=== PATIENT | male | born 2000 | race Caucasian/White ===

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

== ENCOUNTER → 2021-01-07 13:41 | Outpatient (CLI) | payer SELFPAY | PROVIDERS: PCP Pediatrics; Visit Provider Nurse Practitioner | DX: Z20.822 Contact with and (suspected) exposure to COVID-19 (principal); U07.1 COVID-19 | CPT/HCPCS: C9803; U0003; U0005 ==

== ENCOUNTER 2022-05-25 23:21 | Emergency (ER) | payer SELFPAY ==
[2022-05-25 23:22] VITALS: BP 135/89; PULSE 89; RESP 17; TEMP 36.8; O2SAT 100; BMI 20.7
[2022-05-25 23:31] VITALS: BP 135/89; PULSE 84; O2SAT 100
[2022-05-25 23:38] LABS: Microscopic, Urine URINE MICROSCOPIC (MICROSCOPIC)
[2022-05-25 23:44] LABS: Basophils # 0.2 K/mm3 (0-0.2); Basophils % 1.9 % (0.1-2.0); Eosinophils # 0.1 K/mm3 (0.0-0.4); Eosinophils % 1.2 % (0.1-12.0); Hemoglobin 17.3 g/dL (14.1-18.0); Lymphocytes # 2.9 K/mm3 (0.7-4.5); Lymphocytes % 25.8 % (10-50); Mean Corpuscular Hemoglobin 31.8 pg (27.0-31.2); Mean Corpuscular Volume 93.5 fl (80-94); Mean Platelet Volume 8.5 fl (7.4-10.4); Monocytes # 0.6 K/mm3 (0.1-1.0); Monocytes % 5.4 % (1.7-9.3); Neutrophils # 7.5 K/mm3 (1.8-7.8); Neutrophils % 65.6 % (37.0-80.0); Platelet Count 357 K/mm3 (142-424); Red Blood Count 5.46 M/mm3 (4.60-6.20); Red Cell Distribution Width 13.7 % (11.5-17.5); White Blood Count 11.4 K/mm3 (4.8-10.8)
[2022-05-25 23:45] LABS: Chloride 103 mmol/L (98-107); Sodium 142 mmol/L (136-145)
[2022-05-25 23:47] LABS: Amylase 91 U/L (30-110); Blood Urea Nitrogen 12 mg/dl (9-20); Creatinine Clearance Estimated 117 mL/min (50-200); Estimated Glomerular Filt Rate 107 ml/min (>60); GFR (African American) 129 ML/MIN (>60)
[2022-05-25 23:48] LABS: Alanine Aminotransferase 51 U/L (12-78); Albumin Level 5.5 g/dl (3.5-5.0); Albumin/Globulin Ratio 1.5 (1.1-1.8); Alkaline Phosphatase 67 U/L (38-126); Aspartate Amino Transferase 48 U/L (17-59); Calcium 9.7 mg/dl (8.4-10.2); Carbon Dioxide 27 mmol/L (22.0-30.0); Globulin 3.7 g/dL (1.3-3.2); Glucose 95 mg/dl (74-100); Lipase 52 U/L (23-300); Total Protein,Serum 9.2 g/dl (6.3-8.2)
[2022-05-25 23:50] LABS: Lactic Acid 1.2 mmol/L (0.7-2.1)
[2022-05-25 23:57] LABS: Appearance,Urine CLEAR (Clear); Bilirubin,Urine Negative (Negative); Blood, Urine Negative (Negative); Color,Urine YELLOW (Yellow); Glucose,Urine (UA) Negative (Negative); Ketones,Urine Negative (Negative); Leukocyte Esterase,Urine Negative (Negative); Nitrate,Urine Negative (Negative); PH,Urine 6.5 (5.0-8.5); Protein,Urine Negative (Negative); Urobilinogen,Urine 0.2 EU/dl (0.2)
[2022-05-25 23:58] LABS: Bacteria,Urine Trace /lpf
[2022-05-26] VITALS: BP 128/78; PULSE 69; O2SAT 100
--- NOTE | 2022-05-26 | CT_ITS ---
PROCEDURE INFORMATION: Exam: CT Abdomen And Pelvis With Contrast Exam date and time: 05/26/2022 12:09 AM Age: 22 years old Clinical indication: Abdominal pain; Additional info: Abd pain TECHNIQUE: Imaging protocol: Computed tomography of the abdomen and pelvis with contrast. Radiation optimization: All CT scans at this facility use at least one of these dose optimization techniques: automated exposure control; mA and/or kV adjustment per patient size (includes targeted exams where dose is matched to clinical indication); or iterative reconstruction. Contrast material: ISOVUE; Contrast volume: 75 ml; Contrast route: IV; Other protocol: This patient has received 0 known CTs and 0 known cardiac nuclear medicine studies in the 12 months prior to the current study. COMPARISON: CT ABDOMEN PELVIS W CON 05/27/2020 3:37 AM FINDINGS: Liver: Normal. No mass. Gallbladder and bile ducts: Normal. No calcified stones. No ductal dilation. Pancreas: Normal. No ductal dilation. Spleen: Mild splenomegaly with 13 cm spleen unchanged. Adrenal glands: Normal. No mass. Kidneys and ureters: Normal. No hydronephrosis. Stomach and bowel: Mild distal small bowel fluid is seen with scattered air-fluid levels suggesting possible enteritis. No bowel obstruction. The colon also scattered wall thickening. Appendix: No evidence of appendicitis. Intraperitoneal space: Unremarkable. No free air. No significant fluid collection. Vasculature: Unremarkable. No abdominal aortic aneurysm. Lymph nodes: Unremarkable. No enlarged lymph nodes. Urinary bladder: Unremarkable as visualized. Reproductive: Unremarkable as visualized. Bones/joints: Unremarkable. No acute fracture. Soft tissues: Unremarkable. IMPRESSION: 1. Mild small bowel enteritis and scattered colitis is suspected, which is likely infectious/inflammatory. No bowel obstruction. 2. Stable mild splenomegaly.
--- NOTE | 2022-05-26 00:05 | PC.NURSE ---
pt out of room to CT @ this time.
[2022-05-26 00:30] VITALS: BP 131/79
--- NOTE | 2022-05-26 00:49 | HMH.EDABDPAI ---
Discharge Plan Disposition Patient Disposition: Home, Self-Care Prescriptions Prescriptions: New ondansetron HCl 4 mg Tablet 4 mg PO Q8H PRN (Reason: Nausea) Qty: 20 0RF Referrals Follow up/Referrals: Ben Mera [Primary Care Provider] - See instructions Clinical Impressions Clinical Impression: Enteritis Instructions Patient Instructions: DI for Enteritis Discharge ED Provider: Favian (ED),Chong Gutierrez Abdominal Pain HPI General Chief Complaint: Abdominal Pain Stated Complaint: abdominal pain Time Seen by Provider: 05/26/22 00:49 Mode of Arrival: Ambulatory Source of Information: Patient and Medical Record Limitations: No Limitations Description of Symptoms (Recalled from ER Triage Doc. by RN): 22 M presents with 1 day of generalized abdominal cramping with nausea and diarrhea. He states he thought he slept wrong and that was causing his abdominal pain, but when the diarrhea started he became worried it could be his appendix. Denies fever, chills, vomiting, or dysuria. History of Present Illness HPI narrative: generalized abd pain - crampy with vomiting and episode of nonbldy diarrhea - no known contacts MD complaint: abdominal pain Onset (ago): day(s) Consistency: intermittent Location: diffuse Quality: cramping Associated symptoms: denies other symptoms Related Data Previous Rx's Medication Instructions Recorded ondansetron HCl 4 mg tablet 4 mg PO Q8H PRN Nausea #20 tabs 05/26/22 Allergies Allergy/AdvReac Type Severity Reaction Status Date / Time No Known Allergies Allergy Verified 06/28/17 10:26 [facility] Disclaimer: The information contained in this section may have been updated after the patient was seen, as this information can be updated by other users. Social History Smoking Status: Current every day smoker tobacco type: e-cigarettes alcohol intake: current substance use type: marijuana current occupational status: employed Travel in the last 8 weeks: None ROS Obtained: Yes All systems reviewed & no additional complaints except as documented Physical Exam General General appearance: alert Head Head exam: normocephalic Eye Eye exam: Present PERRL and EOMI; Absent scleral icterus ENT ENT exam: Present mucous membranes moist Neck Neck exam: Present trachea midline Respiratory Respiratory exam: Present normal lung sounds bilaterally; Absent respiratory distress Cardiovascular Cardiovascular exam: Present regular rate Abdominal Exam Abdominal exam: Present soft and tenderness; Absent guarding or rebound Abdominal tenderness: Present diffuse and mild Extremities Exam Extremities exam: Present full ROM Neurological Exam Neurological exam: Present alert, oriented X3 and CN II-XII intact; Absent motor sensory deficit Psychiatric Psychiatric exam: Present normal affect Skin Skin exam: Absent rash Medical Decision Making Medical Records Medical records reviewed: Yes I reviewed the patient's medical records. Sherif Inquiry Pt receiving controlled substance: No Vital Signs: 05/25/22 23:22 05/25/22 23:31 05/26/22 00:00 Temperature 98.3 F Temperature Source Oral Pulse Rate 84 69 Pulse Rate [Left] 89 Respiratory Rate 17 Blood Pressure 135/89 128/78 Blood Pressure [Right Arm] 135/89 Blood Pressure Mean [Right Arm] 104 Blood Pressure Source [Right Arm] Automatic Cuff Blood Pressure Position [Right Arm] Sitting 02 Sat by Pulse Oximetry 100 100 100 Oxygen Delivery Method Room Air Lab Data Lab results reviewed: Yes I reviewed the patient's lab results. Lab Results 05/25/22 23:29: WBC 11.4 H, RBC 5.46, Hgb 17.3, Hct 51.0, MCV 93.5, MCH 31.8 H, MCHC 34.0, RDW 13.7, Plt Count 357, MPV 8.5, Neut % (Auto) 65.6, Lymph % (Auto) 25.8, [place] % (Auto) 5.4, Eos % (Auto) 1.2, Baso % (Auto) 1.9, Neut # (Auto) 7.5, Lymph # (Auto) 2.9, [place] # (Auto) 0.6, Eos # (Auto) 0.1, Baso # (Auto) 0.2 05/25/22 23:29: Sodium 142, Potassium 4.0, Chloride 103,
[2022-05-26 01:00] VITALS: BP 116/70; PULSE 80; O2SAT 100
[2022-05-26 01:16] VITALS: BP 116/70; PULSE 80; RESP 18; TEMP 36.6; O2SAT 99
[2022-05-26 01:42] LABS: C-Reactive Protein < 0.3 mg/L (0-4)
[2022-05-26 01:46] LABS: Procalcitonin < 0.030 ng/mL (0.0-2.0)
[2022-05-26 02:02] LABS: Erythrocyte Sedimentation Rate 4 mm/hr (0-15)
== END 2022-05-26 01:20 | disposition home or self-care (01) ==
PROVIDERS: Emergency Provider Emergency Medicine; PCP Pediatrics
DX: K52.9 Noninfective gastroenteritis and colitis, unspecified (principal); F17.290 Nicotine dependence, other tobacco product, uncomplicated; F12.90 Cannabis use, unspecified, uncomplicated
CPT/HCPCS: 74177; 80053; 81001; 82150; 83605; 83690; 84145; 85025; 85651; 86140; 96360; 96361; 99285; Q9967

== ENCOUNTER 2023-06-29 17:19 | Emergency (ER) | payer BC, SELFPAY ==
[2023-06-29 18:10] VITALS: BP 130/73; PULSE 91; RESP 18; TEMP 37.2; O2SAT 96; BMI 22.9
--- NOTE | 2023-06-29 18:28 | EXP.UTC ---
Discharge Plan Disposition Patient Disposition: Home, Self-Care Condition: Good Prescriptions Prescriptions: New mupirocin 2 % ointment 1 applic topical TID 7 Days Qty: 22 0RF sulfamethoxazole-trimethoprim [Bactrim DS] 800-160 mg Tablet 1 tab PO BID Qty: 20 0RF cephalexin 500 mg capsule 500 mg PO QID Qty: 40 0RF Referrals Follow up/Referrals: Ben Mera [Primary Care Provider] - See instructions Activity Restrictions/Add. Instructions Additional Instructions/Restrictions: Keep the wound clean and dry. Watch the wound for signs of worsening infection, such as worsening redness, swelling, drainage, fever. etc. Take tylenol or ibuprofen for pain. Follow up with your regular doctor. Make sure you follow up withing the next 48 to 72 hours to have the infected wound rechecked. GO TO THE ER FOR ANY WORSENING SYMPTOMS OR CONCERNS. Clinical Impressions Clinical Impression: Unspecified local infection of skin and subcutaneous tissue, Cellulitis of right hand Instructions Patient Instructions: Trimethoprim/Sulfamethoxazole (Alternative Therapy), Cellulitis, Cephalexin, Mupirocin Discharge ED Provider: Shadi Peters [facility] General Stated complaint: right arm pain Time Seen by Provider: 06/29/23 18:28 History of Present Illness Provider Complaint: He states that for the past 2 days he has had a redness around a new tattoo that he got on his right forearm 4 days ago. Related Data Previous Rx's Medication Instructions Recorded cephalexin 500 mg capsule 500 mg PO QID #40 caps 06/29/23 mupirocin 2 % topical ointment 1 applic topical TID 7 days #22 06/29/23 grams sulfamethoxazole 800 1 tab PO BID #20 tabs 06/29/23 mg-trimethoprim 160 mg tablet (Bactrim DS) Allergies Allergy/AdvReac Type Severity Reaction Status Date / Time No Known Allergies Allergy Verified 06/29/23 18:39 [facility] Disclaimer: The information contained in this section may have been updated after the patient was seen, as this information can be updated by other users. Social History Smoking Status: Current every day smoker tobacco type: e-cigarettes alcohol intake: current substance use type: marijuana current occupational status: employed Travel in the last 8 weeks: None ROS Obtained: Yes All systems reviewed & no additional complaints except as documented Constitutional Constitutional: Denies chills and Denies fever(s) Eyes Eyes: Denies eye discharge ENT Ears, Nose, Mouth, and Throat: Denies dizziness, Denies otalgia and Denies sore throat Cardiovascular Cardiovascular: Denies chest pain Respiratory Respiratory: Denies shortness of breath, Denies chest congestion, Denies cough, Denies stridor and Denies wheezing Gastrointestinal Gastrointestingal: Denies nausea or vomiting Musculoskeletal Musculoskeletal: Reports system reviewed and no additional complaints, except as documented and Denies arthralgias Integumentary/Breasts Skin/Breast: Reports as per HPI, Reports redness and Reports rash Neurologic Neurologic: Denies dizziness and Denies paresthesias Allergic/Immunologic Allergic/Immunologic: Denies wheezing Physical Exam General General appearance: alert and in no apparent distress Head Head exam: atraumatic, normocephalic and normal inspection Eye Eye exam: Present normal appearance, PERRL and EOMI ENT ENT exam: Present normal exam, normal oropharynx, mucous membranes moist, TM's normal bilaterally and normal external ear exam Neck Neck exam: Present normal inspection, full ROM and trachea midline; Absent meningismus or lymphadenopathy Chest Chest inspection: Present normal inspection and symmetric chest wall rise; Absent tenderness Respiratory Respiratory exam: Present normal lung sounds bilaterally; Absent respiratory distress Cardiovascular Cardiovascular exam: Present regular rate and normal rhythm; Absent JVD Abdominal Exam Abdominal exam: Present soft and normal bowel sounds; Absent distention, tenderness or guarding Extremities Exam Extremities exam: Present normal inspection, full ROM and normal capillary refill; Absent calf tenderness Back Exam Back exam: Present normal inspection; Absent tenderness Neurological Exam Neurological exam: Present alert and oriented X3 Psychiatric Psychiatric exam: Present normal affect and normal mood Skin Skin exam: Present erythema (he has a new tattoo on his right forearm. there is redess and open areas with yellowish drainage in the tattoo. there is no induration, no edema.) Lymphatic Lymphatic Findings: no adenopathy Medical Decision Making Medical Records Medical records reviewed: No I reviewed the patient's medical records. Sherif Inquiry Pt receiving controlled substance: No Lab Data Lab results reviewed: Yes I reviewed the patient's lab results.
[2023-06-29] MEDS: cefTRIAXone 1GM VIAL 1 GM IM (18:45)
[2023-06-29] MEDS: LIDOCAINE 1% 5ML PF VIAL IM (18:46)
--- NOTE | 2023-06-29 18:58 | PC.NURSE ---
Sent wound culture to lab
[2023-06-29 19:31] VITALS: BP 130/73; PULSE 91; RESP 18; TEMP 37.2; O2SAT 96
== END 2023-06-29 19:15 | disposition home or self-care (01) ==
PROVIDERS: Emergency Provider Nurse Practitioner Family; PCP Pediatrics
DX: L03.113 Cellulitis of right upper limb (principal); F17.290 Nicotine dependence, other tobacco product, uncomplicated
CPT/HCPCS: 87070; 87205; 96372; 99204; 99212; G0463; J0696

== ENCOUNTER 2024-07-01 07:56 | Emergency (ER) | payer BC, SELFPAY ==
[2024-07-01 08:02] VITALS: BP 128/75; PULSE 117; O2SAT 97
--- NOTE | 2024-07-01 08:04 | ECG_ITS ---
APPROVED REPORT Exam: Resting ECG HR:116 bpm ECG Measurements Heart Rate 116 AXES GA 126 P 62 QRSd 100 QRS 89 QT 291 T 18 QTc 360 Conclusion SINUS TACHYCARDIA ABNORMAL RHYTHM ECG UNCONFIRMED REPORT Electronically signed by : MIK BRUNNER, 07/04/2024 05:57:19
[2024-07-01 08:06] VITALS: BP 128/75; PULSE 92; RESP 16; TEMP 37.7; O2SAT 97; BMI 26.1
--- NOTE | 2024-07-01 08:11 | XR_ITS ---
PROCEDURE INFORMATION: Exam: XR Chest Exam date and time: 07/01/2024 8:11 AM Age: 24 years old Clinical indication: Fever; Additional info: Fever, fatigue, R/O pneumonia TECHNIQUE: Imaging protocol: Radiologic exam of the chest. Views: 2 views. COMPARISON: CT ABDOMEN PELVIS W CON 05/26/2022 12:09 AM FINDINGS: Lungs: Unremarkable. No consolidation. Pleural spaces: Unremarkable. No pleural effusion. No pneumothorax. Heart/Mediastinum: Unremarkable. No cardiomegaly. Bones/joints: Unremarkable. IMPRESSION: No acute findings.
--- NOTE | 2024-07-01 08:11 | HMH.EDGENADL ---
Discharge Plan Disposition Patient Disposition: Home, Self-Care Condition: Good Prescriptions Prescriptions: New ondansetron 4 mg tablet,disintegrating 4 mg PO Q8H PRN (Reason: nausea and vomiting) 4 Days Qty: 12 0RF Referrals Follow up/Referrals: Ben Mera [Primary Care Provider] - See instructions Activity Restrictions/Add. Instructions Additional Instructions/Restrictions: You are being prescribed Zofran to help with any nausea that may occur. You likely have a viral illness that is causing your symptoms. You can take Tylenol and ibuprofen every 6 hours as needed to help with symptoms. Continue to hydrate well by drinking plenty of fluids. Follow-up with your primary care physician if symptoms do not improve, or if you become concerned for your health for any reason, or if your symptoms worsen, return to the emergency department for evaluation. Clinical Impressions Clinical Impression: Viral illness Print Language Print Language: Tamazight Discharge ED Provider: Jacob Barrera General Adult HPI General Chief complaint: Fever Stated complaint: fever, dizziness, tiredness Time Seen by Provider: 07/01/24 08:05 Mode of Arrival: Ambulatory Source of Information: Patient Limitations: No Limitations History of Present Illness HPI narrative: Kennedy Renee is a 24-year-old male with no significant past medical history who presents to the emergency department for complaints of fatigue and fever. Patient states that starting yesterday, he had a fever at home and took ibuprofen yesterday. At the same time, he developed a headache and was practically in bed all day due to fatigue. He states that this morning he is not feeling any better has fever again. He denies any chest pain, shortness of breath, cough, abdominal pain, diarrhea, nausea or vomiting. He states that he has had a decreased appetite but has been able to eat and drink stable. He works at [employer] but does not have any known sick contacts. He describes a headache currently but denies any lightheadedness or dizziness. Related Data Previous Rx's ?Medication ?Instructions ?Recorded ondansetron 4 mg disintegrating 4 mg PO Q8H PRN nausea and 07/01/24 tablet vomiting 4 days #12 tabs Allergies Allergy/AdvReac Type Severity Reaction Status Date / Time No Known Allergies Allergy Verified 07/01/24 08:28 [facility] Disclaimer: The information contained in this section may have been updated after the patient was seen, as this information can be updated by other users. Social History Smoking Status: Current every day smoker tobacco type: e-cigarettes alcohol intake: current alcohol intake frequency: holidays/special occasions only substance use type: marijuana current occupational status: employed Travel in the last 8 weeks: None Have you lived/traveled outside [place] in past 30 days?: No Contact w/someone who lives/traveled outside US past 30 days?: No Exposure to someone with infectious disease in past 14 days?: No Do you have a fever (greater than 100.4 F or 38 C)?: Yes Have you tested positive for COVID-19: No Exposed to someone with COVID-19 in past 14 days?: No Do you have a sore throat?: No Do you have a cough?: No Do you have any weakness?: Yes Do you have any diarrhea?: No Are you experiencing any unusual bleeding?: No Do you have any muscle aches/pain?: No Do you have any abdominal pain?: No Are you experiencing loss of taste or smell?: No Other Medical History Have you received the Flu Vaccine for this season: No Have you received the Pneumonia Vaccine: No ROS Obtained: Yes Systems reviewed as appropriate & no additional complaints except as documented Physical Exam General General appearance: alert and in no apparent distress Head Head exam: atraumatic Eye Eye exam: Present normal appearance ENT ENT exam: Present normal external ear exam Neck Neck exam: Present full ROM Chest Chest inspection: Present symmetric chest wall rise Respiratory Respiratory exam: Present normal lung sounds bilaterally; Absent respiratory distress, wheezes or stridor Cardiovascular Cardiovascular exam: Present normal rhythm and tachycardia Abdominal Exam Abdominal exam: Present soft; Absent tenderness or guarding exam: Present deferred Extremities Exam Extremities exam: Present normal inspection Back Exam Back exam: Present normal inspection Neurological Exam Neurological exam: Present alert and oriented X3 Psychiatric Psychiatric exam: Present normal affect Skin Skin exam: Present warm and dry Medical Decision Making Medical Records Screening: Per USPSTF and CDC recommendations, given the prevalence of disease in our region, it is our hospital?s policy to screen for HIV and viral Hepatitis for all patients aged 18 and over and those with ongoing risk factors. Sherif Inquiry Pt receiving controlled substance: No Vital Signs: 07/01/24 08:02 07/01/24 08:06 07/01/24 08:30 Temperature 99.9 F H Temperature Source Oral Pulse Rate 117 H 100 H Pulse Rate [Left] 92 H Respiratory Rate 16 Blood Pressure 128/75 109/67 L Blood Pressure [Right Arm] 128/75 Blood Pressure Mean [Right Arm] 92 Blood Pressure Source [Right Arm] Automatic Cuff Blood Pressure Position [Right Arm] Sitting 02 Sat by Pulse Oximetry 97 97 97 Oxygen Delivery Method Room Air Lab Data Lab Results 07/01/24 08:03: SARS-CoV-2 (PCR) Not detected, Influenza A Untype (PCR) Not detected, Influenza Type B (PCR) Not detected Orders (Tests/Meds): ED MEDICATIONS Discontinued Medications Generic Name Dose Route Start Last Admin Trade Name Radhamesq PRN Reason Stop Dose Admin Acetaminophen 1,000 mg 07/01/24 08:11 07/01/24 08:15 Acetaminophen 500mg Tab PO 07/01/24 08:12 1,000 mg ONCE ONE Administration Ibuprofen 600 mg 07/01/24 08:11 07/01/24 08:15 Ibuprofen 600 Mg Tablet PO 07/01/24 08:12 600 mg ONCE ONE Administration ORDERS Category Date Time Status CXR 2 view (NOT portable) [XR chest 2V] Stat Exams 07/01/24 08:11 Taken Rapid PCR Covid and Flu A/B Stat Lab 07/01/24 08:03 Completed ECG Data Tracing #1: I reviewed this ECG and interpreted as documented below: EKG demonstrated sinus tachycardia with ventricular rate of [address] elevation or depression. Narrow QRS. QTc normal at 360. CT interval normal at 126. Medical Decision Narrative: Kennedy Renee is a 24-year-old male with no significant past medical history who presents to the emergency department for complaints of fatigue and fever. Patient states that starting yesterday, he had a fever at home and took ibuprofen yesterday. At the same time, he developed a headache and was practically in bed all day due to fatigue. He states that this morning he is not feeling any better has fever again. He denies any chest pain, shortness of breath, cough, abdominal pain, diarrhea, nausea or vomiting. He states that he has had a decreased appetite but has been able to eat and drink stable. He works at [employer] but does not have any known sick contacts. He describes a headache currently but denies any lightheadedness or dizziness. On arrival, patient's EKG showed sinus tachycardia but initial vitals with heart rate of 92 bpm, normotension, breathing comfortably on room air with oxygen saturation 97% SpO2. Mildly elevated temperature of 99.9 ?F. Physical exam, stated above, revealed an ill but nontoxic male in no distress. Cardiopulmonary exam is unremarkable with no murmurs, wheezing, rales or rhonchi. Abdomen is soft, nontender nondistended. He appears well-hydrated. Differential diagnosis includes, but is not limited to: Viral respiratory illness such as COVID or flu, pneumonia, cardiac arrhythmia, among others. Low concern for pulmonary embolism at this time as patient is not having chest pain or shortness of breath. In the setting of fever, tachycardia is most explained by a viral illness, however will rule out pneumonia with chest x-ray. EKG, as stated above is reassuring. Lab work was considered, however given patient's symptomatology appears viral in nature, these are not indicated at this time as it would not change ED management. Will treat with 600 mg of ibuprofen and 1 g of Tylenol orally. Viral testing demonstrated no flu or COVID Chest x-ray interpreted by me personally prior to official radiology read. No focal consolidations but there is bilateral peribronchial thickening. No pneumothorax. No widening of the mediastinum. Cardiac silhouette is within normal limits. See final radiology report for details. On reassessment, patient's symptoms had improved with Tylenol and ibuprofen. Is likely that he has a viral illness as the source of his symptoms and fever. Given this, recommended Tylenol and ibuprofen over the next several days and will prescribe Zofran for any nausea that may occur. Recommended follow-up with his primary care physician if symptoms do not improve. Return precautions to the emergency department were also provided. All questions were answered. He was amenable to this plan. He was then discharged from the emergency department in stable condition. Critical Care Critical Care Time Critical Care Time: No
[2024-07-01 08:14] LABS: Coronavirus 19, PCR Not Detected (NotDetected); Influenza A, PCR Not Detected (NotDetected); Influenza B, PCR Not Detected (NotDetected)
[2024-07-01] MEDS: ACETAMINOPHEN 500MG TAB 1000 MG PO (08:15)
[2024-07-01] MEDS: IBUPROFEN 600 MG TABLET PO (08:15)
[2024-07-01 08:30] VITALS: BP 109/67; PULSE 100; O2SAT 97
[2024-07-01 09:00] VITALS: BP 105/43; PULSE 94; O2SAT 96
[2024-07-01 09:14] VITALS: BP 109/49; PULSE 51; RESP 18; TEMP 36.9; O2SAT 99
== END 2024-07-01 09:17 | disposition home or self-care (01) ==
PROVIDERS: Emergency Provider Student in an Organized Health Care Education/Training Program; PCP Pediatrics
DX: B34.9 Viral infection, unspecified (principal)
CPT/HCPCS: 71046; 87636; 93005; 99284

== ENCOUNTER 2024-07-20 03:08 | Emergency (ER) | payer BC, SELFPAY ==
--- NOTE | 2024-07-20 03:12 | ED_ITS ---
Discharge Plan Disposition Patient Disposition: Home, Self-Care Prescriptions Prescriptions: No Action ondansetron 4 mg tablet,disintegrating 4 mg PO Q8H PRN (Reason: nausea and vomiting) 4 Days Qty: 12 0RF Referrals Follow up/Referrals: Ben Mera [Primary Care Provider] - See instructions Activity Restrictions/Add. Instructions Additional Instructions/Restrictions: Recommend [id number] loratadine and sore throat spray as well as Tylenol and ibuprofen as needed. Please follow-up with your primary care provider. Please return to the emergency department if you develop any new or worsening symptoms or become concerned for your health. Clinical Impressions Clinical Impression: Viral illness Print Language Print Language: Urdu Discharge ED Provider: Porter Bravo General Adult HPI General Chief complaint: Upper Respiratory Infection Stated complaint: sore throat, cough Time Seen by Provider: 07/20/24 03:12 History of Present Illness HPI narrative: 24-year-old male without significant past medical history presents with viral syndrome. Reports cough congestion headache ear pain sore throat over the last few days. Fever a couple of days ago. Denies significant shortness of breath. Related Data Previous Rx's ?Medication ?Instructions ?Recorded ondansetron 4 mg disintegrating 4 mg PO Q8H PRN nausea and 07/01/24 tablet vomiting 4 days #12 tabs Allergies Allergy/AdvReac Type Severity Reaction Status Date / Time No Known Allergies Allergy Verified 07/01/24 08:28 [facility] Disclaimer: The information contained in this section may have been updated after the patient was seen, as this information can be updated by other users. Social History Smoking Status: Current every day smoker tobacco type: e-cigarettes alcohol intake: current alcohol intake frequency: holidays/special occasions only substance use type: marijuana current occupational status: employed Travel in the last 8 weeks: None Have you lived/traveled outside US in past 30 days?: No Contact w/someone who lives/traveled outside US past 30 days?: No Exposure to someone with infectious disease in past 14 days?: No Do you have a fever (greater than 100.4 F or 38 C)?: No Have you tested positive for COVID-19: No Exposed to someone with COVID-19 in past 14 days?: No Do you have a sore throat?: Yes Do you have a cough?: Yes Do you have any weakness?: No Do you have any diarrhea?: No Are you experiencing any unusual bleeding?: No Do you have any muscle aches/pain?: No Do you have any abdominal pain?: No Are you experiencing loss of taste or smell?: No Other Medical History Have you received the Flu Vaccine for this season: No Have you received the Pneumonia Vaccine: No ROS Obtained: Yes All systems reviewed & no additional complaints except as documented Physical Exam General General appearance: alert and in no apparent distress Head Head exam: atraumatic and normocephalic Eye Eye exam: Present normal appearance, PERRL and EOMI ENT ENT exam: Present normal oropharynx and normal external ear exam Neck Neck exam: Present normal inspection and full ROM Chest Chest inspection: Present normal inspection and symmetric chest wall rise; Absent tenderness Respiratory Respiratory exam: Present normal lung sounds bilaterally; Absent respiratory distress Cardiovascular Cardiovascular exam: Present regular rate and normal rhythm Abdominal Exam Abdominal exam: Present soft; Absent distention, tenderness or guarding Extremities Exam Extremities exam: Present normal inspection; Absent edema or joint swelling Back Exam Back exam: Present normal inspection; Absent tenderness Neurological Exam Neurological exam: Present alert and oriented X3; Absent motor sensory deficit Psychiatric Psychiatric exam: Present normal affect and normal mood Skin Skin exam: Present warm, dry and normal color Lymphatic Lymphatic Findings: no adenopathy Medical Decision Making Medical Records Medical records reviewed: Yes I reviewed the patient's medical records. Screening: Per USPSTF and CDC recommendations, given the prevalence of disease in our region, it is our hospital?s policy to screen for HIV and viral Hepatitis for all patients aged 18 and over and those with ongoing risk factors. Sherif Inquiry Pt receiving controlled substance: No Sherif was queried for this patient: No Vital Signs: 07/20/24 03:13 07/20/24 03:29 Temperature 97.5 F L 98.2 F Temperature Source Oral Oral Pulse Rate 80 Pulse Rate [Right Brachial] 91 H Respiratory Rate 16 16 Blood Pressure 121/70 Blood Pressure [Right Arm] 123/73 Blood Pressure Mean [Right Arm] 89 Blood Pressure Source Automatic Cuff Blood Pressure Source [Right Arm] Automatic Cuff Blood Pressure Position Sitting Blood Pressure Position [Right Arm] Sitting 02 Sat by Pulse Oximetry 98 Oxygen Delivery Method Room Air Room Air Lab Data Lab results reviewed: Yes I reviewed the patient's lab results. Orders (Tests/Meds): ED MEDICATIONS Discontinued Medications Generic Name Dose Route Start Last Admin Trade Name Kalyn PRN Reason Stop Dose Admin Lidocaine HCl 15 ml 07/20/24 03:25 07/20/24 03:27 Lidocaine 2% Viscous Elena 15ml Udc PO 07/20/24 03:26 15 ml ONCE ONE Administration Medical Decision Narrative: 24-year-old male without significant past medical history presents for viral illness. History was obtained via interactive discussion with patient. On arrival, patient is [afebrile, hemodynamically stable, satting appropriately, alert, oriented x4, GCS 15], moving all extremities spontaneously. Full physical exam performed and significant for some cobblestoning in the posterior oropharynx, clear TMs bilaterally, clear lungs bilaterally Differential includes but is not limited to URI, strep throat, otitis, allergies. No evidence of emergent or bacterial pathology at this time. Patient was discharged in stable condition with return precautions.. Procedures Risk/Benefits of Procedure(s) Were Explained: Yes Critical Care Critical Care Time Critical Care Time: No
[2024-07-20 03:13] VITALS: BP 123/73; PULSE 91; RESP 16; TEMP 36.4; O2SAT 98; BMI 25.8
--- NOTE | 2024-07-20 03:17 | PC.NURSE ---
Pt awake alert and oriented x3 Skin pink warm and dry Resp full and easy Speech clear and appropriate
[2024-07-20] MEDS: LIDOCAINE 2% VISCOUS SOL 15ML UDC 15 ML PO (03:27)
[2024-07-20 03:29] VITALS: BP 121/70; PULSE 80; RESP 16; TEMP 36.8; O2SAT 98
== END 2024-07-20 03:30 | disposition home or self-care (01) ==
PROVIDERS: Emergency Provider Emergency Medicine; PCP Pediatrics
DX: B34.9 Viral infection, unspecified (principal); R05.9 Cough, unspecified; R07.0 Pain in throat; R51.9 Headache, unspecified; J39.2 Other diseases of pharynx; H92.09 Otalgia, unspecified ear; R09.89 Other specified symptoms and signs involving the circulatory and respiratory systems; F12.90 Cannabis use, unspecified, uncomplicated; F17.290 Nicotine dependence, other tobacco product, uncomplicated
CPT/HCPCS: 99283